=== PATIENT | female | born 1940 | race Caucasian/White ===

== ENCOUNTER → 2017-10-10 | Outpatient (CLI) | payer MEDICARE, OTHER ==
[~2017-10-10] MED LIST: B-121000 MCG PO; HYZAAR 25 MG-101 TAB PO; MASON NATURAL1200 MG PO; MULTI VITAMINS1 TAB PO
== END ==
LOC: MC.RAD 10-04 13:00
DX: Z12.31 Encounter for screening mammogram for malignant neoplasm of breast (principal)

== ENCOUNTER → 2018-10-30 | Outpatient (CLI) | payer MEDICARE, OTHER | LOC: MC.RAD 16:37 | DX: Z12.31 Encounter for screening mammogram for malignant neoplasm of breast (principal) ==

== ENCOUNTER 2022-05-14 14:37 | Inpatient (IN) | payer MEDICARE, OTHER ==
[~2022-05-14] VITALS: Ht 152.4 cm; Wt 85.1 kg
[2022-05-14 16:20] LABS: HEMATOCRIT 42.7 % (37.0-47.0); HEMOGLOBIN 14.2 g/dl (12.5-16.0); MEAN CELL VOLUME 86 fl (80.0-100.0); MEAN CORPUSCULAR HEMOGLOBIN 29 pg (27-31); MEAN CORPUSCULAR HGB CONC 33 g/dl (33.0-37.0); MEAN PLATELET VOLUME 9.4 fl (7.4-10.4); PLATELET COUNT 288 K/mm3 (130-400); RED BLOOD COUNT 4.97 M/mm3 (4.10-5.30); REDCELL DISTRIBUTION WIDTH-CV 14.4 % (11.5-14.5)
[2022-05-14 16:40] LABS: ALBUMIN 3.3 gm/dL (3.4-4.8); CALCIUM 9.5 mg/dL (8.4-10.2); CREATININE, serum 1.43 mg/dL (0.57-1.11); MAGNESIUM 2.1 mg/dL (1.6-2.6); PHOSPHOROUS 3.6 mg/dL (2.3-4.7); POTASSIUM 3.7 mmol/L (3.5-4.5)
[2022-05-14 16:47] LABS: TROPONIN-I 0.02 ng/mL (0.00-0.033)
[2022-05-14 17:47] LABS: BAND 1 % (0-10); BASOPHIL 3 % (0-2); EOSINOPHIL 1 % (0-4); LYMPHOCYTE 65 % (20.0-51.0); NEUTROPHILS 26 % (42.0-75.2); PLATELET ESTIMATE NORMAL (NORMAL)
[2022-05-14] MEDS ORDERED: ELIQUIS 5MG PO (21:05)
[2022-05-14] MEDS ORDERED: TOPROL XL 25MG25 MG PO (21:06)
[2022-05-14] MEDS ORDERED: LASIX 80MG TABL80 MG PO (21:06)
[2022-05-14] MEDS ORDERED: K-TAB20 PO (21:06)
[2022-05-14 21:42] VITALS: BP 128/44; PULSE 98; TEMP 98.3
--- NOTE | 2022-05-14 22:25 | NUR ---
TX GIVEN VIA MOUTHPIECE, TOLERATED WELL. PT ON 1L BLEED IN WITH HOME CPAP AFTER TX AND TOLERATING WELL.
[2022-05-14 23:57] VITALS: BP 117/45; PULSE 89; TEMP 98.1
--- NOTE | 2022-05-15 00:19 | NUR ---
PT ADMIT AFTER FEELING SOA X 2DAYS, WENT TO SEE CARDIOLOGY TODAY SENT HERE. ADMIT FOR HYPOXIA. HX AND ASSESSMENT OBTAINED. POC DISCUSSED. MED REC REVIEWED W DAUGHTER. ROOM ORIENATION, CALL LIGHT WI REACH.
[2022-05-15 04:31] VITALS: BP 132/57; PULSE 88; TEMP 97.4
--- NOTE | 2022-05-15 05:02 | NUR ---
RESTED THROUGH THE NIGHT WITHOUT INCIDENT. DENIES SOA, CHEST PAIN OR DIZZY. CPAP ON OVERNIGHT. IV STERIODS GIVEN THIS AM. CALL LIGHT WI REACH. NEEDS MET.
[2022-05-15 07:25] LABS: HEMATOCRIT 46.3 % (37.0-47.0); MEAN CELL VOLUME 88 fl (80.0-100.0); MEAN CORPUSCULAR HEMOGLOBIN 29 pg (27-31); MEAN CORPUSCULAR HGB CONC 32 g/dl (33.0-37.0); MEAN PLATELET VOLUME 9.6 fl (7.4-10.4); PLATELET COUNT 299 K/mm3 (130-400); RED BLOOD COUNT 5.26 M/mm3 (4.10-5.30); REDCELL DISTRIBUTION WIDTH-CV 14.5 % (11.5-14.5)
[2022-05-15 07:30] VITALS: BP 115/59; PULSE 71; TEMP 97.6
[2022-05-15 07:56] LABS: CALCIUM 9.7 mg/dL (8.4-10.2); CREATININE, serum 1.05 mg/dL (0.57-1.11); MAGNESIUM 2.1 mg/dL (1.6-2.6); POTASSIUM 3.8 mmol/L (3.5-4.5)
--- NOTE | 2022-05-15 09:28 | NUR ---
NINO met with the patient, her (Jeb, ph#[phone]), and daughter, Arabella (ph#[phone]), to discuss discharge plan. The patient lives in [place] with her . She reports independence with ADLs and has a cane, CPAP from [employer], walk-in shower, and grabbars. The patient's PCP is Dr. Leopoldo Decker and she receives her medications from [facility]. The patient does not have a DPOA-HC in EMR, but her states that they do have the document completed and that he is the patient's DPOA-HC. The patient plans on returning home with her upon discharge. NINO asked the PA for PT/OT to be ordered. *Discharge plan: home with *
[2022-05-15 10:46] LABS: BAND 2 % (0-10); NEUTROPHILS 63 % (42.0-75.2)
[2022-05-15 10:48] LABS: LYMPHOCYTE 34 % (20.0-51.0); PLATELET ESTIMATE NORMAL (NORMAL)
[2022-05-15 11:07] VITALS: BP 119/59; PULSE 100; TEMP 98.4
--- NOTE | 2022-05-15 12:09 | NUR ---
Jazmín: Dayron Situation: Mechanical Drawing Teacher stopped by room on rounds Background: PT was resting with family in the room. Assessment: PT and fish grader had a great conversation. PT asked for prayer and fish grader prayed with her, her and daughter. Pt appreciated the visit Recommendation: Mechanical Drawing Teacher will follow up as needed
[2022-05-15 16:28] VITALS: BP 122/56; PULSE 72; TEMP 97.7
--- NOTE | 2022-05-15 18:00 | NUR ---
Scheduled medications given. Shift assessment preformed. VSS. Patient A&O. Patient denies any pain, discomfort, SOA, or further needs at this time. Call light in reach.
[2022-05-15 19:18] VITALS: BP 121/83; PULSE 117; TEMP 98
[2022-05-16 00:40] VITALS: BP 143/76; PULSE 90; TEMP 97.6
[2022-05-16 04:50] VITALS: BP 136/59; PULSE 75; TEMP 97.7
[2022-05-16 07:23] LABS: PATHOLOGY DIFF REVIEW OK
[2022-05-16 07:50] VITALS: BP 109/66; PULSE 91; TEMP 97.8
[2022-05-16 08:18] LABS: CREATININE, serum 0.96 mg/dL (0.57-1.11); POTASSIUM 4.4 mmol/L (3.5-4.5)
--- NOTE | 2022-05-16 08:35 | NUR ---
PT SITTING AT BEDSIDE ON ROOM AIR. PT JUST GOT OUT OF THE SHOWER. STATES "I AM A LITTLE SOB WHEN I GET UP AND WALK AROUND." PT STATES THAT SHE DOES NOT WANT TO WEAR HER O2 AT THIS TIME. "I DO NOT NEED IT." PT STATES NO OTHER NEEDS/CONCERNS AT THIS TIME. CALL LIGHT IS WITHIN REACH.
--- NOTE | 2022-05-16 10:34 | NUR ---
PT is recommending home. Dr. Aragon, couture dressmaker, notified the clinical team that the patient has a right lung mass and is scheduled to undergo a biopsy on Saturday. *Discharge plan: home with *
[2022-05-16 11:14] LABS: INR 1.2 (0.8-3.0); PROTHROMBIN TIME 14.2 SECONDS (9.7-12.8)
[2022-05-16 11:34] VITALS: BP 120/48; PULSE 84; TEMP 98.3
[2022-05-16 15:27] VITALS: BP 124/68; PULSE 90; TEMP 97.8
--- NOTE | 2022-05-16 18:31 | NUR ---
PT LAYING SUPINE IN BED ON ROOM AIR WITH FAMIY AT BEDSIDE. PT STATES NO SOB AT THIS TIME OR PAIN. PT STATES "THANK YOU FOR ALL OF YOUR CARE." PT STATES NO NEEDS AT THIS TIME. REMINDED PT THAT SHE WILL BE NPO AT MIDNIGHT FOR STRESS TEST TOMORROW. PT VOICED UNDERSTANDING. CALL LIGHT IS WITHIN REACH.
--- NOTE | 2022-05-16 20:22 | NUR ---
TX GIVEN VIA MOUTHPIECE, TOLERATED WELL. PT ON ROOM AIR BEFORE AND AFTER TX. CPAP SETUP AND READY FOR PT.
[2022-05-16 20:50] VITALS: BP 135/60; PULSE 87; TEMP 97.6
--- NOTE | 2022-05-16 22:24 | NUR ---
PT CONT TO HAVE SOME SOA, DENIES CHEST PAIN OR DIZZY. FEELS ANIXIOUS AFTER LEARNING SHE HAS LUNG CA. XANAX GIVEN W PM MEDS. POC DISCUSSED. CALL LIGHT WI REACH. NEEDS MET
[2022-05-17] VITALS (25 sets, daily range): BP systolic 95–151; BP diastolic 53–80; PULSE 48–119; TEMP 97.6–97.9
--- NOTE | 2022-05-17 01:06 | NUR ---
PT RESTING RESP EVEN AND UNLABORED.NEEDS MET.
--- NOTE | 2022-05-17 01:55 | NUR ---
REPORT FROM [facility]. PATIENT IN BED, EYES CLOSED, RR EVEN AND UNLABORED. RT AT BEDSIDE. O2 SATS 94% PER RT.
[2022-05-17 06:42] LABS: BASO % 0.1 % (0.0-2.0); GRAN # 15.8 K/mm3 (1.4-6.5); GRAN % 72.7 % (42.2-75.2); HEMATOCRIT 43.3 % (37.0-47.0); LYMPH # 5.1 K/mm3 (1.2-3.4); LYMPH % 23.7 % (20.0-51.0); MEAN CELL VOLUME 89 fl (80.0-100.0); MEAN CORPUSCULAR HEMOGLOBIN 29 pg (27-31); MEAN CORPUSCULAR HGB CONC 32 g/dl (33.0-37.0); MEAN PLATELET VOLUME 9.3 fl (7.4-10.4); MONO # 0.6 K/mm3 (0.1-0.6); MONO % 2.9 % (1.7-9.3); PLATELET COUNT 296 K/mm3 (130-400); RED BLOOD COUNT 4.89 M/mm3 (4.10-5.30); REDCELL DISTRIBUTION WIDTH-CV 14.9 % (11.5-14.5)
[2022-05-17 07:02] LABS: CALCIUM 9.4 mg/dL (8.4-10.2); CREATININE, serum 0.85 mg/dL (0.57-1.11); MAGNESIUM 2.5 mg/dL (1.6-2.6); POTASSIUM 4.7 mmol/L (3.5-4.5)
--- NOTE | 2022-05-17 09:13 | NUR ---
PT LAYING SUPINE IN BED ON ROOM AIR WITH FAMILY AT BEDSIDE. PT STATES THAT SHE IS NOT HAVING ANY SOB AT THIS TIME. "I AM JUST WAITING TO DO MY TEST." INFOMRED PT SINCE SHE HAS BEEN INJECTED THEN IT SHOULD BE SOMETIME SOON. PT STATES NO NEEDS OR CONCERNS AT THIS TIME. "I WILL DEF WANT A DRINK OF WATER WHEN I GET BACK FROM THE SCAN." CALL LIGHT IS WITHIN REACH.
--- NOTE | 2022-05-17 18:40 | NUR ---
PT LAYING SUPINE IN BED ON ROOM AIR WITH DAUGHTER AT BEDSIDE. PT STATES THAT SHE IS HAVING A LITTLE BIT OF SOB AND IS REQUESTING A BREATHING TREATMENT. RT WAS CALLED AND STATES THAT IT IS SHIFT CHANGE BUT THEY WILL PUT ON ON THE TOP OF THE LIST TO COME IN. PT INFOMRED. PT STATES THAT SHE WOULD LIKE TO HAVE A XANAX. MEDICATION WAS GIVEN. DAUGHTER STATES THAT WITH EVERYTHING GOING ON AND THE PROCEDURE TOMORROW SHE IS JUST HAVING A LITTLE BIT OF ANXIETY. I SUGGESTED TO PT AND FAMILY THAT MAYBE GETTING OUT OF THE ROOM AND WALKING THE HALLWAYS TILL HELP GET A BREATH OF FRESH AIR AND HELP TAKE HER MIND OF STUFF. PT WAS GIVEN A WHEELCHAIR AND DAUGHTER PUSHED HER IN THE HALLWAYS. PT STATES NO OTHER CONCERNS. CALL LIGHT IS WITHIN REACH.
--- NOTE | 2022-05-17 23:06 | NUR ---
Patient assessed around 2029. Patient alert and oriented x 4, and able to make needs known. Patient drowsy, but awakens easily. Denies pain and discomfort. INT to left hand and left AC. Patient denies SOB and dyspnea at rest, but does with exertion. LS CTA in left lung garces, diminished in right. HRR. Telemetry in place. BSAx4. Abdomen soft and non-tender. Voices no questions, needs, or concerns at this time. In bed with call light within reach. Aware that she is NPO after midnight for bronchoscopy tomorrow morning.
[2022-05-18] VITALS (11 sets, daily range): BP systolic 115–189; BP diastolic 60–115; PULSE 51–79; TEMP 97.5–97.9
--- NOTE | 2022-05-18 06:09 | NUR ---
Patient has denied having pain and discomfort, except for being cold. Given warm blanket and turned temperature up in room which patient reports helped. Has been NPO since midnight. Voices no questions, needs, or concerns at this time. In bed with call light within reach.
[2022-05-18 06:23] LABS: HEMATOCRIT 48.6 % (37.0-47.0); HEMOGLOBIN 15.4 g/dl (12.5-16.0); MEAN CELL VOLUME 90 fl (80.0-100.0); MEAN CORPUSCULAR HEMOGLOBIN 29 pg (27-31); MEAN CORPUSCULAR HGB CONC 32 g/dl (33.0-37.0); MEAN PLATELET VOLUME 9.5 fl (7.4-10.4); PLATELET COUNT 326 K/mm3 (130-400); REDCELL DISTRIBUTION WIDTH-CV 14.8 % (11.5-14.5)
[2022-05-18 06:34] LABS: CALCIUM 9.5 mg/dL (8.4-10.2); CREATININE, serum 1.01 mg/dL (0.57-1.11); MAGNESIUM 2.7 mg/dL (1.6-2.6); POTASSIUM 4.7 mmol/L (3.5-4.5)
[2022-05-18 07:46] LABS: BAND 3 % (0-10); LYMPHOCYTE 43 % (20.0-51.0); NEUTROPHILS 53 % (42.0-75.2); PLATELET ESTIMATE NORMAL (NORMAL)
--- NOTE | 2022-05-18 09:45 | NUR ---
PATIENT ARRIVED BACK FROM ENDO LAB ALERT AND ORIENTED, NO COMPLAINTS OF PAIN. POST-OP VITALS INITIATED, DIET ORDERED AND PATIENT SETTLED IN ROOM.
--- NOTE | 2022-05-18 14:38 | NUR ---
PATIENT VERY PLESANT, SLIGHTLY ANXIOUS ABOUT BRONCHOSCOPY THIS MORNING. PATIENT DAUGHTER AT BEDSIDE. NO COMPLAINTS. SO NOTED DIFFICULTY WITH BREATHING, O2 SATURATIONS UP 95%, PATIENT SEEMS SOB HOWEVER. WILL CONTINUE TO MONITOR.
--- NOTE | 2022-05-18 19:00 | NUR ---
Patient tolerated broncoscopy, biopsy and wash well. Worked with physical and occupational therapy after, ate a full meal. No hemoptsis. No complaints of pain. Patient rested this afternoon, stated feeling "physically drained" after procedures and workout. No significant events today.
--- NOTE | 2022-05-18 22:46 | NUR ---
Patient assessed around 2029. Denied pain and discomfort. Peripheral INT to left hand and left AC. Continues on oxygen at 3 L/min via NC. LS coarse crackles right upper lobe, diminished right middle and lower. CTA left lobes. Wears CPAP at night. Complained of increased SOB around 2200. SPO2 94%. Given Xanax and called RT for neb tx. Also given PRN Appresoline for elevated BP per order. HRR. Telemetry in place-sinus patricia. BSAx4. Voices no further questions, needs, or concerns at this time. In bed with call light within reach.
[2022-05-19] VITALS (7 sets, daily range): BP systolic 143–179; BP diastolic 65–76; PULSE 54–62; TEMP 97.7–99.2
--- NOTE | 2022-05-19 06:39 | NUR ---
Patient wore CPAP throughout the night. Denies pain and discomfort. Voices no questions, needs, or concerns at this time. In bed with call light within reach.
[2022-05-19 07:02] LABS: HEMATOCRIT 44.9 % (37.0-47.0); HEMOGLOBIN 14.7 g/dl (12.5-16.0); MEAN CELL VOLUME 87 fl (80.0-100.0); MEAN CORPUSCULAR HEMOGLOBIN 29 pg (27-31); MEAN CORPUSCULAR HGB CONC 33 g/dl (33.0-37.0); MEAN PLATELET VOLUME 9.6 fl (7.4-10.4); PLATELET COUNT 296 K/mm3 (130-400); RED BLOOD COUNT 5.16 M/mm3 (4.10-5.30); REDCELL DISTRIBUTION WIDTH-CV 14.4 % (11.5-14.5)
[2022-05-19 07:31] LABS: CALCIUM 9.1 mg/dL (8.4-10.2); CREATININE, serum 0.81 mg/dL (0.57-1.11); MAGNESIUM 2.6 mg/dL (1.6-2.6); POTASSIUM 4.6 mmol/L (3.5-4.5)
[2022-05-19 08:05] LABS: LYMPHOCYTE 37 % (20.0-51.0); PLATELET ESTIMATE NORMAL (NORMAL)
[2022-05-19 08:06] LABS: NEUTROPHILS 61 % (42.0-75.2)
--- NOTE | 2022-05-19 11:26 | NUR ---
PATIENT UP AND MOVING IN ROOM, SHOWER INDEPENDENTLY WITH DAUGHTER. NO COMPLAINTS OF PAIN, NO CHANGES IN CONDITION OVER NIGHT. PLAN, AFTER SOTOLOL INITIATION AND CLEARANCE FROM CARDIO TO DISCHARGE HOME. PATIENT HAVING SOME LOOSE STOOLS, NO SIGNS OF INFECTION HOWEVER. NO UNCONTROLLED INCONTINENCE.
--- NOTE | 2022-05-19 17:13 | NUR ---
PATIENT HAD NO SIGNIFICANT EVENTS TODAY. MAY NEED HOME O2. PATIENT STRUGGLED WITH SHORTNESS OF BREATH AFTER SHOWER, OXYGEN SATURATION AT 90%, WITH SOME DIFFICULTY BREATHING. ONCE O2 PLACED, PATIENT QUICKLY RECOVERED. PATIENT REQUESTING XANAX AT NIGHT TO HELP WITH ANXIOUSNESS AND FOR SLEEP. MAY NEED PRESCRIPTION WHEN DISCHARGED. PATIENT STILL VERY INDEPENDENT IN ROOM. ONE DOSE OF IV HYDROLAZINE NEEDED TODAY FOR SYSTOLIC BP>170. PATIENT RESTING MOST OF THE DAY TODAY. NO COMPLAINTS OF PAIN. PLAN FOR DISCHARGE TOMORROW AFTER 6TH DOSE OF SOTOLOL.
--- NOTE | 2022-05-19 23:14 | NUR ---
Patient assessed around 2009. On oxygen at 1 L/min via NC. Wears CPAP at night. Reports feeling much better today. Denies pain and discomfort. In bed with call light within reach. Voices no questions, needs, or concerns at this time.
[2022-05-20 04:58] VITALS: BP 189/91; PULSE 68; TEMP 98.4
--- NOTE | 2022-05-20 06:15 | NUR ---
Patient wore CPAP during the night. Received PRN Appresoline for elevated BP, see MAR. Denies pain and discomfort. Voices no questions, needs, or concerns at this time. In bed with call light within reach.
--- NOTE | 2022-05-20 07:04 | NUR ---
PATIENT RESTING IN BED, NO COMPLAINTS OF PAIN. SOME ANXIETY, READY TO GO HOME. NO CHANGE IN LUNG SOUNDS, NO BLOODY SPUTUM. NO CONFUSION. IV SITE FLUSHES WELL. NO PAIN AT SITE. PATIENT INDEPENDENT IN ROOM.
[2022-05-20 07:35] VITALS: BP 130/55; PULSE 61; TEMP 97.9
[2022-05-20 08:02] LABS: HEMATOCRIT 48.9 % (37.0-47.0); MEAN CELL VOLUME 88 fl (80.0-100.0); MEAN CORPUSCULAR HEMOGLOBIN 29 pg (27-31); MEAN CORPUSCULAR HGB CONC 33 g/dl (33.0-37.0); MEAN PLATELET VOLUME 9.7 fl (7.4-10.4); PLATELET COUNT 318 K/mm3 (130-400); RED BLOOD COUNT 5.55 M/mm3 (4.10-5.30); REDCELL DISTRIBUTION WIDTH-CV 14.7 % (11.5-14.5)
[2022-05-20 08:23] LABS: CALCIUM 9.4 mg/dL (8.4-10.2); CREATININE, serum 0.81 mg/dL (0.57-1.11); MAGNESIUM 2.7 mg/dL (1.6-2.6); POTASSIUM 4.9 mmol/L (3.5-4.5)
[2022-05-20 10:04] LABS: LYMPHOCYTE 41 % (20.0-51.0); NEUTROPHILS 58 % (42.0-75.2)
[2022-05-20 10:05] LABS: HYPOCHROMIA 1+; PLATELET ESTIMATE NORMAL (NORMAL)
[2022-05-20 11:41] VITALS: BP 178/81; PULSE 75; TEMP 97.6
[2022-05-20 16:00] VITALS: BP 153/58; PULSE 57; TEMP 98
--- NOTE | 2022-05-20 16:30 | NUR ---
SW advised pt on important message from medicare IM sheet. Pt read and signed it. NINO placed copy in chart and gave pt a copy.
--- NOTE | 2022-05-20 19:29 | NUR ---
PATIENT RESTED IN BED FOR MOST OF THE DAY. FAMILY AND FRIENDS TOOK TURNS VISITING. NO COMPLAINTS OF PAIN. TOLERATED ROOM AIR WITH O2 SATS IN MID TO LOW 90S. NO SIGNIFICANT EVENTS. NSR ON TELE. POSSIBLE HEART CATH TOMORROW?
[2022-05-20 20:29] VITALS: BP 131/61; PULSE 61; TEMP 97.4
[2022-05-21] VITALS (7 sets, daily range): BP systolic 89–191; BP diastolic 53–83; PULSE 50–80; TEMP 97.5–98.5
--- NOTE | 2022-05-21 04:30 | NUR ---
POTASSIUM NOTED TO BE ELVATED AT 4.9 05/20 AM,REPORTED TO GIL PT HAS A DOSE DUE THIS AM. HOLD UNTIL AFTER LABS TO SEE LEVEL, ORDER PLACED.
--- NOTE | 2022-05-21 05:50 | NUR ---
PT RESTED THROUGH THE NIGHT WITHOUT INCIDENT. NPO FOR POSSIBLE HEART CATH. NEEDS MET.
[2022-05-21 06:54] LABS: HEMATOCRIT 46.2 % (37.0-47.0); HEMOGLOBIN 15.2 g/dl (12.5-16.0); MEAN CELL VOLUME 87 fl (80.0-100.0); MEAN CORPUSCULAR HEMOGLOBIN 29 pg (27-31); MEAN CORPUSCULAR HGB CONC 33 g/dl (33.0-37.0); MEAN PLATELET VOLUME 9.6 fl (7.4-10.4); PLATELET COUNT 260 K/mm3 (130-400); REDCELL DISTRIBUTION WIDTH-CV 14.7 % (11.5-14.5)
[2022-05-21 07:13] LABS: CALCIUM 9.1 mg/dL (8.4-10.2); CREATININE, serum 0.8 mg/dL (0.57-1.11)
[2022-05-21 07:53] LABS: POTASSIUM 4.7 mmol/L (3.5-4.5)
[2022-05-21 09:43] LABS: BAND 1 % (0-10); LYMPHOCYTE 34 % (20.0-51.0); METAMYELOCYTE 1 % (0-0); NEUTROPHILS 63 % (42.0-75.2)
[2022-05-21 09:44] LABS: HYPOCHROMIA 1+; PLATELET ESTIMATE NORMAL (NORMAL)
--- NOTE | 2022-05-21 10:00 | NUR ---
PT LAYING SUPINE IN BED ON ROOM AIR WITH FAMILY AT BEDSIDE. PT STATES THAT SHE IS NOT HAVING ANY SOB OR PAIN AT THIS TIME. PT WAS NPO SINCE MIDNIGHT FOR POSSIBLE HEART CATH AND CARDIO HAS CONFIRMED NO HEART CATH AT THIS TIME. PT WAS GIVEN BREAKFAST AND WAS ABLE TO EAT. PT AND FAMILY STATES NO OTHER CONCERNS/NEEDS. CALL LIGHT IS WITHIN REACH.
[2022-05-21 11:12] LABS: ALBUMIN 3.1 gm/dL (3.4-4.8); BILIRUBIN,TOTAL 1.4 mg/dL (0.2-1.2); TOTAL PROTEIN 5.9 gm/dL (6.2-8.1)
[2022-05-21 11:46] LABS: BILIRUBIN,DIRECT 0.4 mg/dL (0.0-0.5)
--- NOTE | 2022-05-21 18:32 | NUR ---
PT LAYING SUPINE IN BED ON 4 LITS VIA NC. FAMILY AT BEDSIDE. PT STATES THAT "I AM READY TO GO HOME. I WANT TO BE AT HOME WHERE I AM MORE COMFORTABLE." PT STATES THAT SHE IS NOT HAVING ANY SOB AT THIS TIME. PT AND FAMILY STATES NO NEEDS OR CONCERNS AT THIS TIME. CALL LIGHT IS WITHIN REACH.
[2022-05-22 00:49] VITALS: BP 100/59; PULSE 59; TEMP 97.8
[2022-05-22 04:18] VITALS: BP 126/72; PULSE 68; TEMP 97.8
[2022-05-22 06:09] LABS: HEMATOCRIT 43.8 % (37.0-47.0); HEMOGLOBIN 14.4 g/dl (12.5-16.0); MEAN CELL VOLUME 87 fl (80.0-100.0); MEAN CORPUSCULAR HEMOGLOBIN 29 pg (27-31); MEAN CORPUSCULAR HGB CONC 33 g/dl (33.0-37.0); MEAN PLATELET VOLUME 9.7 fl (7.4-10.4); PLATELET COUNT 199 K/mm3 (130-400); RED BLOOD COUNT 5.03 M/mm3 (4.10-5.30); REDCELL DISTRIBUTION WIDTH-CV 14.9 % (11.5-14.5)
[2022-05-22 06:23] LABS: CALCIUM 8.6 mg/dL (8.4-10.2); CREATININE, serum 0.83 mg/dL (0.57-1.11); POTASSIUM 4.1 mmol/L (3.5-4.5)
--- NOTE | 2022-05-22 07:06 | NUR ---
PT HAD UNEVENTFUL NIGHT. DENIES PAIN, SOME DISCOMFORT WITH BREATHING, BUT HAS NOT HAD ANY SEVERE SHORTNESS OF BREATH LIKE SHE DID DURING THE DAY SHIFT 05/21. PT STATES SHE IS READY TO GO HOME. NO OTHER CONCERNS. REPORT GIVEN TO DESI GUERRERO.
[2022-05-22 07:30] VITALS: BP 109/52; PULSE 59; TEMP 98.2
[2022-05-22 08:10] LABS: BAND 2 % (0-10); NEUTROPHILS 63 % (42.0-75.2); PLATELET ESTIMATE NORMAL (NORMAL)
[2022-05-22 08:12] LABS: LYMPHOCYTE 34 % (20.0-51.0)
[2022-05-22] MEDS ORDERED: LIPITOR 40MG TA40 MG PO (09:00)
[2022-05-22] MEDS ORDERED: BETAPACE 80MG80 MG PO (09:00)
[2022-05-22] MEDS ORDERED: COZAAR100 MG PO (09:02)
[2022-05-22] MEDS ORDERED: LASIX 20MG TABL20 MG PO (09:02)
[2022-05-22] MEDS ORDERED: KLOR-CON M2020 MEQ PO (09:03)
[2022-05-22] MEDS ORDERED: PREDNISONE20 MG PO ×2 (09:06→10:17)
[2022-05-22] MEDS ORDERED: OXYGEN (09:09)
--- NOTE | 2022-05-22 09:38 | NUR ---
The clinical team is ready to discharge the patient today. An exercise oximetry was ordered. RT notified SW that the patient qualified for 2 liters of oxygen with exertion. SW met with the patient and her daugher, Linda, to update and follow up on DME company preference. The patient and Linda would like to use [employer]. Linda reports that she can chicken picker the oxygen from [employer] today. SW contacted and faxed and emailed the oxygen order to Zena at [facility]. SW requested that she contact the patient's daughter, Linda, once the order is ready to today. SW updated the patient's RN. The patient is to discharge back home with her today, 05/22. No additional needs at this time.
--- NOTE | 2022-05-22 09:45 | NUR ---
Pt laying supine in bed on 2 lit via NC. Daughter at bedse. Pt states no pain or SOB at this time. "I am ready to go home." Oxygen has been ordered and the daughter is awaiting a call for when it is ready. Pt states no needs or concerns at this time. Daughter states she woudl like some ice water. Items were given to daughter. Call light is within reach.
[2022-05-22] MEDS ORDERED: RT ADVAIR 228 DISKUS IH (10:18)
[2022-05-22] MEDS ORDERED: SPIRIVA RE2.5 MCG/Ac IH (10:18)
[2022-05-22] MEDS ORDERED: XANAX .25M0.25 MG/TA PO (10:48)
[2022-05-22 11:25] VITALS: BP 90/55; PULSE 55; TEMP 98.3
[2022-05-22 16:05] VITALS: BP 126/58; PULSE 55; TEMP 97.5
== END 2022-05-22 17:00 | disposition home or self-care (01) | DRG 180 ==
LOC: COL.ER 14:37 → MEDICAL 18:59
PROVIDERS: Emergency Medicine; Family Medicine; Internal Medicine; Internal Medicine Adult Congenital Heart Disease; Internal Medicine Pulmonary Disease; Physician Assistant; Student in an Organized Health Care Education/Training Program; ADMIT Family Medicine
PROC: 0B938ZZ Drainage of Right Main Bronchus, Via Natural or Artificial Opening Endoscopic (ICD-10-PCS; 2022-05-18)
PROC: 0BDB8ZX Extraction of Left Lower Lobe Bronchus, Via Natural or Artificial Opening Endoscopic, Diagnostic (ICD-10-PCS; 2022-05-18)
PROC: 0B9C8ZX Drainage of Right Upper Lung Lobe, Via Natural or Artificial Opening Endoscopic, Diagnostic (ICD-10-PCS; 2022-05-18)
PROC: 0BDC8ZX Extraction of Right Upper Lung Lobe, Via Natural or Artificial Opening Endoscopic, Diagnostic (ICD-10-PCS; 2022-05-18)
PROC: 0B9J8ZZ Drainage of Left Lower Lung Lobe, Via Natural or Artificial Opening Endoscopic (ICD-10-PCS; principal; 2022-05-18 08:30)
DX: C34.01 Malignant neoplasm of right main bronchus (principal); J96.01 Acute respiratory failure with hypoxia; J44.1 Chronic obstructive pulmonary disease with (acute) exacerbation; N17.9 Acute kidney failure, unspecified; C91.10 Chronic lymphocytic leukemia of B-cell type not having achieved remission; I50.30 Unspecified diastolic (congestive) heart failure; R04.2 Hemoptysis; Z20.822 Contact with and (suspected) exposure to COVID-19; G47.33 Obstructive sleep apnea (adult) (pediatric); E78.5 Hyperlipidemia, unspecified; F41.9 Anxiety disorder, unspecified; I49.5 Sick sinus syndrome; I11.0 Hypertensive heart disease with heart failure; I48.0 Paroxysmal atrial fibrillation; Z99.81 Dependence on supplemental oxygen; Z98.51 Tubal ligation status; Z79.52 Long term (current) use of systemic steroids; Z79.01 Long term (current) use of anticoagulants; Z88.7 Allergy status to serum and vaccine; Z87.892 Personal history of anaphylaxis; Z87.891 Personal history of nicotine dependence; Z72.89 Other problems related to lifestyle
CPT/HCPCS: 99223-AI; 99233-AI; A9500; J0330; J0360; J0456; J0696; J2704; J2785; J2920; J7050; J7120; J7512; J8540; Q9967

== ENCOUNTER → 2022-06-13 | Outpatient (CLI) | payer MEDICARE, OTHER ==
[~2022-06-13] MED LIST changes: +BETAPACE 80MG80 MG PO; +COZAAR100 MG PO; +ELIQUIS 5MG PO; +K-TAB20 PO; +KLOR-CON M2020 MEQ PO; +LASIX 20MG TABL20 MG PO; +LASIX 80MG TABL80 MG PO; +LIPITOR 40MG TA40 MG PO; +OXYGEN; +PREDNISONE20 MG PO; +RT ADVAIR 228 DISKUS IH; +SPIRIVA RE2.5 MCG/Ac IH; +TOPROL XL 25MG25 MG PO; +XANAX .25M0.25 MG/TA PO
== END ==
LOC: MC.RAD 08:17
DX: N63.20 Unspecified lump in the left breast, unspecified quadrant (principal); C34.31 Malignant neoplasm of lower lobe, right bronchus or lung; C91.10 Chronic lymphocytic leukemia of B-cell type not having achieved remission